=== PATIENT | female | born 1975 | race Caucasian/White ===

== ENCOUNTER 2017-10-19 12:12 | Emergency (ER) | payer BC ==
[2017-10-19] MEDS ORDERED: Lidocaine 2% VISCOUS* 15 ML UDC PO ONE (12:53)
--- NOTE | 2017-10-19 12:55 | ED ---
Throat Pain/Nasal Congestion - HPI Summary HPI Summary: This patient is a 42 year old F presenting to [facility] with a chief complaint of throat pain radiating to her since 10/16/17. Pt was eating twizzlers and states she thinks she got some stuck there or that it scratched her throat. She endorses dysphagia, with pain radiating down the entire esophagus. She denies abd pain and SOB upon exertion. Pt endorses PMHx hiatal hernia, chronic migraines, denies heart problems. Pt endorses smoking. Denies all FHx. - History of Current Complaint Chief Complaint: EDThroatPain Time Seen by Provider: 10/19/17 12:22 Hx Obtained From: Patient Onset/Duration: Sudden Onset, Lasting Days, Still Present Severity: Mild Associated Signs And Symptoms: Positive: Dysphagia Cough: None Related History: Smoking - Allergies/Home Medications Allergies/Adverse Reactions: Allergies Allergy/AdvReac Type Severity Reaction Status Date / Time MS Cephalexin [From Keflex] Allergy Severe emesis Verified 08/09/13 11:48 MS Codeine [Codeine] Allergy Severe emesis Verified 08/09/13 11:48 MS Nabumetone [From Relafen] Allergy Severe emesis Verified 08/09/13 11:48 MS Celecoxib [From Celebrex] Allergy Intermediate Hives Verified 08/09/13 11:48 MS Penicillins [PCN] Allergy Intermediate Unknown Verified 08/09/13 11:48 Reaction Details MS Prednisone [Prednisone] AdvReac Intermediate Anxiety Verified 08/09/13 11:48 PMH/Surg Hx/FS Hx/Imm Hx Endocrine/Hematology History: Denies: Hx Diabetes, Hx Thyroid Disease Cardiovascular History: Denies: Hx Hypertension, Hx Pacemaker/ICD Respiratory History: Denies: Other Respiratory Problems/Disorders - denies need written literature smoking cessation GI History: Reports: Other GI Disorders - see hx History: Denies: Hx Dialysis, Hx Renal Disease Sensory History: Denies: Hx Legally Blind, Hx Hearing Aid Opthamlomology History: Denies: Hx Legally Blind EENT History: Denies: Hx Deafness Neurological History: Reports: Hx Migraine - chronic Denies: Hx Seizures Psychiatric History: Denies: Hx Panic Disorder - Surgical History Surgery Procedure, Year, and Place: csection x 2, coco, [employer] CHILD, LEAP Infectious Disease History: No Infectious Disease History: Denies: Hx Hepatitis, Traveled Outside the [place] in Last 30 Days - Family History Known Family History: Negative: Cardiac Disease, Hypertension, Diabetes - Social History Alcohol Use: None Substance Use Type: Reports: None Review of Systems Negative: Fever Positive: Sore Throat, Other - dysphagia Positive: Chest Pain Negative: Shortness Of Breath Negative: Abdominal Pain All Other Systems Reviewed And Are Negative: Yes Physical Exam - Summary Physical Exam Summary: Appearance: Well appearing, no pain distress Skin: warm, dry, reflects adequate perfusion Head/face: normal Eyes: EOMI, SAMPSON ENT: normal Neck: supple, non-tender Respiratory: CTA, breath sounds present Cardiovascular: RRR, pulses symmetrical Abdomen: non-tender, soft Bowel: present Musculoskeletal: normal, strength/ROM intact Neuro: normal, sensory motor intact, A&Ox3 Triage Information Reviewed: Yes Vital Signs On Initial Exam: Initial Vitals Temp Pulse Resp BP Pulse Ox 98.7 F 90 18 117/49 99 10/19/17 12:15 10/19/17 12:15 10/19/17 12:15 10/19/17 12:15 10/19/17 12:15 Vital Signs Reviewed: Yes Diagnostics - Vital Signs Vital Signs Temp Pulse Resp BP Pulse Ox 10/19/17 12:15 98.7 F 90 18 117/49 99 - Laboratory Result Diagrams: 10/19/17 13:02 10/19/17 13:02 Lab Statement: Any lab studies that have been ordered have been reviewed, and results considered in the medical decision making process. - Radiology CXR Xray Interpretation: No Acute Changes Radiology Interpretation Completed By: Radiologist - No active cardiopulmonary disease is noted. Dr. Aguiar has reviewed this report. Re-Evaluation - Re-Evaluation First Eval Re-Evaluation Time: 14:05 Change: Unchanged Comment: discussed medication, discharge. EENT Course/Dx - Course Course Of Treatment: A 42-year-old F presents to the ED with a CC of throat pain for 4 days. (+) pain radiation down entire esophagus, dysphagia. (-) CP, abd pain, SOB. PMHx hiatal hernia. A CXR was (-). In the ED course, pt was given lidocaine. - Differential Diagnoses Differential Diagnoses: URI/Bronchitis, Other - chest pains - Diagnoses Provider Diagnoses: Atypical chest pain Discharge - Sign-Out/Discharge Documenting (check all that apply): Patient Departure - discharge - Discharge Plan Condition: Stable Disposition: HOME Prescriptions: Lidocaine 2% VISCOUS* [Xylocaine 2% Viscous*] 15 ml SWISH SPIT TID 3 Days #1 btl MDD 3 Pantoprazole TAB (NF) [Protonix TAB (NF)] 40 mg PO DAILY #1 tab Patient Education Materials: Chest Pain (ED) Referrals: Waldo Aguilar DO [Primary Care Provider] - 3 Days Additional Instructions: RETURN TO THE EMERGENCY DEPARTMENT FOR ANY NEW OR WORSENING SYMPTOMS. - Billing Disposition and Condition Condition: STABLE Disposition: Home
[2017-10-19 13:14] LABS: ABS Basophils 0 10^3/ul (0-0.2); ABS Eosinophils 0.1 10^3/ul (0-0.6); ABS Lymphocytes 1.7 10^3/ul (1.0-4.8); ABS Monocytes 0.7 10^3/ul (0-0.8); ABS Nucleated RBC 0 10^3/ul; Hematocrit 35 % (35-47); Hemoglobin 11.9 g/dl (12.0-16.0); Lymphocyte % 13.7 % (25-47); Mean Corpuscular HGB Conc 34 g/dl (31-36); Mean Corpuscular Hemoglobin 31 pg (27-31); Mean Corpuscular Volume 89 fL (80-97); Mean Platelet Volume 8.2 um3 (7.4-10.4); Nucleated Red Blood Cells % 0; Platelet Count 194 10^3/ul (150-450); Red Cell Distribution Width 13 % (10.5-15); White Blood Count 12.6 10^3/ul (3.5-10.8)
[2017-10-19 13:38] LABS: EGFR Non-African American 75.1 (>60)
--- NOTE | 2017-10-19 13:51 | RAD ---
Indication: Chest pain. 2 views of the chest including dual energy PA views demonstrate no mediastinal shift. Heart is of normal size and configuration. Lung anguiano appear clear. IMPRESSION: No active cardiopulmonary disease is noted.
[2017-10-19 15:09] VITALS: BP 120/55
== END 2017-10-19 15:09 | disposition home or self-care (01) ==
LOC: ED 12:12
DX: R07.89 Other chest pain (principal); R07.0 Pain in throat; R13.10 Dysphagia, unspecified; Z88.1 Allergy status to other antibiotic agents; Z88.5 Allergy status to narcotic agent; Z88.0 Allergy status to penicillin; Z88.8 Allergy status to other drugs, medicaments and biological substances
CPT/HCPCS: 36415; 71046; 80053; 84484; 84702; 85025; 93005; 99282